=== PATIENT | female | born 1980 | race Caucasian/White ===

== ENCOUNTER → 2019-07-26 08:17 | Outpatient (CLI) | payer OTHER, SELFPAY ==
[2019-07-26 13:02] LABS: Hepatitis B Surface Antibody Non-Reactive; Hepatitis B Surface Antigen Non-Reactive (Nonreactive); Hepatitis C Antibody Non-Reactive (Nonreactive)
[2019-07-29 06:15] LABS: Hepatitis B Core Ab Total Negative (Negative)
== END ==
PROVIDERS: Referring Provider Dermatology; Visit Provider Dermatology
DX: Z20.5 Contact with and (suspected) exposure to viral hepatitis (principal)
CPT/HCPCS: 36415; 86704; 86706; 86803; 87340; 87521